=== PATIENT | female | born 1985 | race Two or more races ===

== ENCOUNTER → 2024-10-17 13:59 | Outpatient (BNVA) | payer OTHER, SELFPAY | PROVIDERS: PCP Internal Medicine; Visit Provider Physician Assistant Surgical ==

== ENCOUNTER 2024-11-21 08:26 | Outpatient (AMB) | payer OTHER, SELFPAY ==
--- NOTE | 2024-11-21 12:03 | MHC.OFFVISWM ---
Intake Visit Reasons: TV NONDESTRUCTIVE TESTER [facility] Allergies No Known Allergies Allergy (Verified 11/21/24 12:04) Medication List - Last Reconciled 11/21/24 by Yfn Guillermo MD naproxen 500 mg PO BID HPI HPI TV NONDESTRUCTIVE TESTER M[facility]: Details: Start time: 12pm, End time: 12.32pm ?I spent 27 minutes speaking with the patient on the phone plus an additional 5 minutes reviewing and updating records for a total of 32 minutes HPI Comments Details: Previous weight loss efforts: self diets Wakes up: 7am, Sleeps: 11pm Breakfast: occasionally Lunch: 1pm (OIKOS yogurt with fruit and granola bar) Dinner: 5.30-8.30pm (protein pasta, salad, meat) Snacks: 3-4pm (salami with cheese with crackers, yogurt bites) Exercise: none Beverages: Coffee: (1 cup/d with oatmilk creamer), tea: none, soda: none, juice: none, ETOH: none The patient has significant back pain for which was prescribed Naproxen. She was advised to lose weight. [facility] Medical History (Updated 11/21/24 @ 12:26 by Yfn Guillermo MD) Back pain BMI 33.0-33.9,adult Obesity Surgical History (Updated 10/17/24 @ 14:20 by Leanna Morales CMA) Hx of dilation and curettage Family History (Updated 10/17/24 @ 14:22 by Leanna Morales CMA) Mother Diabetes Hypertension Arthritis Father Skin cancer Son No problems noted. Son No problems noted. Son No problems noted. Social History (Updated 10/17/24 @ 14:22 by Leanna Morales CMA) Alcohol intake: current Alcohol intake frequency: holidays/special occasions only Patient Tobacco Use Status: Never used Tobacco Telehealth Telehealth Telehealth Platform: Telephone Location of provider rendering services: practice address Location of patient: address on file Patient Identification confirmed using: Name, : Yes Telehealth method: voice only Patient verbally consented to treatment: Yes Patient verbally consented to billing insurance company: Yes Patient informed of any privacy concerns related to visit: Yes Minutes spent on Phone/Video with Pt.: 32 Assessment & Plan Assessment & Plan (1) Obesity: Code(s): E66.9 - Obesity, unspecified Category: Medical Qualifiers: Obesity type: due to excess calories Obesity classification: adult class 1 (BMI 30 - 34.9) Serious obesity comorbidity presence: without serious comorbidity Body mass index: BMI 33.0-33.9 Qualified Code(s): E66.811 - Obesity, class 1; E66.09 - Other obesity due to excess calories; Z68.33 - Body mass index [BMI] 33.0-33.9, adult Plan: 1. Please buy a body composition scale and start sharing measurements with me 2. Do aerobic exercise (outside walking, or treadmill, or elliptical or stationary bike) and do 150 minutes of aerobic exercise per week, or 22 minutes per day. 3. Start the Zepbound when you get your body composition scale once a week. Use a calorie-counting tristan to track your daily calories to create a calorie deficit with a target of consuming 1200 calories per day. We discussed the potential side effects of Zepbound such as nausea, vomiting, abdominal pain, diarrhea and constipation and you will need to contact me if any of these symptoms occur or for any other new symptom you may experience 4.?It is important of avoiding and for at least 18 months postoperatively and has been discussed at the infosession. 5. Goal is to lose at least 1.5-2lbs per week 6. Goal to lose at least 10% of your weight, which is about 20lbs. Minimum weight goal: 180lbs Medications: New tirzepatide (weight loss) (Zepbound) for 4 weeks 2.5 mg (0.5 mL) subcut QWEEK 2 mL 0RF
== END 2024-11-21 12:33 | disposition home or self-care (01) ==
LOC: HO.HBS 08:26
PROVIDERS: PCP Internal Medicine; Visit Provider Surgery
DX: E66.811 Obesity, class 1 (principal); Z68.33 Body mass index [BMI] 33.0-33.9, adult
CPT/HCPCS: 98009